=== PATIENT | female | born 1975 | race Two or more races ===

== ENCOUNTER 2024-06-15 20:41 | Inpatient (IN) | payer OTHER ==
[~2024-06-15] VITALS: Ht 170.2 cm; Wt 54.4 kg
[2024-06-15] MEDS ORDERED: ONDANSETRON HCL 2 MG/ML VIAL ONE (21:54)
[2024-06-15] MEDS ORDERED: MEPERIDINE HCL 25 MG/ML AMPUL IV ONE (22:00)
[2024-06-15] MEDS ORDERED: ONDANSETRON HCL 2 MG/ML VIAL IV ONE (22:00)
[2024-06-15] MEDS ORDERED: 0.9 % SODIUM CHLORIDE 1,000 ML IV SCH (22:00)
[2024-06-15 22:05] LABS: HEMATOCRIT 45.4 % (36.0-45.00); MEAN CELL VOLUME 85.7 fL (80.00-100.00); MEAN CORPUSCULAR HEMOGLOBIN 28.2 pg (27.00-32.0); PLATELET COUNT 322 K/uL (150-450); RED CELL DISTRIBUTION WIDTH 14.3 % (11.5-14.5)
[2024-06-15 22:36] LABS: BILIRUBIN TOTAL 0.88 mg/dL (0.3-1.2); CALCIUM 10.6 mg/dL (8.5-10.1); CREATININE SERUM 0.82 mg/dL (0.55-1.02); GFR 74.72; POTASSIUM 3.76 mEq/L (3.5-5.1)
[2024-06-15] MEDS ORDERED: PROMETHAZINE HCL 50 MG/ML AMPUL IM ONE (23:35)
[2024-06-16] MEDS ORDERED: MORPHINE SULFATE 2 MG/ML CARTRIDGE IV ONE (00:15)
[2024-06-16] MEDS ORDERED: DIATRIZOATE MEGLUMINE, SODIUM 30 ML BOTTLE PO ONE (14:30)
[2024-06-16] MEDS ORDERED: DIATRIZOATE MEGLUMINE, SODIUM 30 ML BOTTLE ONE ×2 (14:38→14:40)
[2024-06-16] MEDS ORDERED: ONDANSETRON HCL 2 MG/ML VIAL ONE (14:55)
[2024-06-16] MEDS ORDERED: KETOROLAC TROMETHAMINE 30 MG VIAL ONE ×2 (14:55→18:11)
[2024-06-16] MEDS ORDERED: KETOROLAC TROMETHAMINE 15 MG VIAL IV STA (15:01)
[2024-06-16] MEDS ORDERED: MORPHINE SULFATE 4 MG/ML VIAL IV PRN (15:15)
[2024-06-16] MEDS ORDERED: KETOROLAC TROMETHAMINE 15 MG VIAL IV PRN (15:15)
[2024-06-16] MEDS ORDERED: 0.9 % SODIUM CHLORIDE 1,000 ML IV SCH (15:15)
[2024-06-16] MEDS ORDERED: ONDANSETRON HCL 2 MG/ML VIAL IV PRN (15:15)
[2024-06-16] MEDS ORDERED: CEFTRIAXONE SODIUM 2,000 MG in 0.9 % SODIUM CHLORIDE 100 ML IV SCH (16:59)
[2024-06-16] MEDS ORDERED: FAMOTIDINE/PF 20 MG in 0.9 % SODIUM CHLORIDE 8 ML IV PUSH SCH (17:00)
[2024-06-16] MEDS ORDERED: METRONIDAZOLE/SODIUM CHLORIDE 100 ML IV SCH (17:00)
[2024-06-16] MEDS ORDERED: CEFTRIAXONE SODIUM 2,000 MG VIAL ONE (17:22)
[2024-06-16] MEDS ORDERED: FAMOTIDINE/PF 20 MG/2 ML VIAL ONE (17:23)
[2024-06-16] MEDS ORDERED: METRONIDAZOLE/SODIUM CHLORIDE 500 MG/100 ML PIGGYBACK IV ONE (17:23)
[2024-06-16 19:23] LABS: PH,URINE 5.5 (5.0-8.0); URINE APPEARANCE Cloudy; URINE BILIRRUBIN Negative (NEGATIVE); URINE BLOOD Trace; URINE COLOR Dark Yellow; URINE GLUCOSE Negative (NEGATIVE); URINE KETONE 15 (NEGATIVE); URINE LEUKOCYTE Negative; URINE NITRATE Negative; URINE PROTEIN Trace (NEGATIVE); URINE UROBILINOGEN 0.2 E.U./dl
[2024-06-16 19:27] LABS: URINE BACTERIA 4735.5 uL (0.0-1933); URINE CAST 2.06 uL (0.0-1.40); URINE RBC 115.1 uL (0.0-20.8); URINE WBC 26.9 uL (0.0-23.2)
[2024-06-16 21:39] VITALS: BP 134/75; O2SAT 99
[2024-06-17 01:08] VITALS: BP 90/50; O2SAT 98
[2024-06-17 07:57] LABS: HEMATOCRIT 32.9 % (36.0-45.00); HEMOGLOBIN 11.2 g/dL (12.0-15.00); MEAN CELL VOLUME 86.6 fL (80.00-100.00); MEAN CORPUSCULAR HEMOGLOBIN 29.5 pg (27.00-32.0); MEAN CORPUSCULAR HGB CONC 34.1 g/dl (32.0-36.0); RED CELL DISTRIBUTION WIDTH 14.7 % (11.5-14.5)
[2024-06-17 08:31] LABS: INR 1.01; PARTIAL THROMBOPLASTIN TIME 24.4 SECONDS (22.0-34.0)
[2024-06-17 08:36] LABS: PLATELET COUNT 217 K/uL (150-450)
[2024-06-17 08:43] VITALS: BP 120/65; O2SAT 100
[2024-06-17] MEDS ORDERED: ENOXAPARIN SODIUM 40 MG/0.4 ML SYRINGE SUBCUTANEO SCH (09:00)
[2024-06-17] MEDS ORDERED: KETOROLAC TROMETHAMINE 30 MG VIAL IV PRN (15:00)
[2024-06-17] MEDS ORDERED: MORPHINE SULFATE 4 MG/ML CARTRIDGE IV PRN (15:00)
[2024-06-17] MEDS ORDERED: FAMOTIDINE/PF 20 MG/2 ML VIAL ONE (15:44)
[2024-06-17 15:46] LABS: ALBUMIN 3.3 gm/dL (3.4-5.0); BILIRUBIN TOTAL 1.07 mg/dL (0.3-1.2); CREATININE SERUM 0.62 mg/dL (0.55-1.02); GFR 103.18; GLOBULINA 2.6 G/DL (2.4-3.5); MAGNESIUM 1.9 mg/dL (1.8-2.4); POTASSIUM 3.59 mEq/L (3.5-5.1); TOTAL PROTEIN 5.9 gm/dL (6.4-8.2)
[2024-06-17 17:33] VITALS: BP 98/55
[2024-06-18 02:25] VITALS: BP 112/50
[2024-06-18 09:15] VITALS: BP 107/69; O2SAT 99
== END 2024-06-18 13:55 | disposition home or self-care (01) | DRG 390 ==
LOC: ER 20:43 → MEDJ 06-16 17:12
PROVIDERS: Emergency Medicine; General Practice; Student in an Organized Health Care Education/Training Program; ADMIT Internal Medicine; ATTEND Internal Medicine
PROC: BW21ZZZ Computerized Tomography (CT Scan) of Abdomen and Pelvis (ICD-10-PCS; principal; 2024-06-15)
DX: K56.50 Intestinal adhesions [bands], unspecified as to partial versus complete obstruction (principal); E86.0 Dehydration